=== PATIENT | male | born 1975 | race Caucasian/White ===

== ENCOUNTER 2018-07-31 13:12 | Emergency (ER) | payer OTHER ==
[~2018-07-31] VITALS: Ht 172.7 cm; Wt 85.2 kg
[2018-07-31 13:15] VITALS: RESP 18; Ht 172.7 cm; Wt 85.2 kg
--- NOTE | 2018-07-31 14:49 | ERD ---
ER Documentation Chief Complaint Chief Complaint COCHRAN X 4 DAYS, HTN NOT TAKING MEDS HPI 43-year-old male, previously healthy, presents to the emergency department, complaining of headache for 4 days, associated with elevated blood pressure. The patient was diagnosed with hypertension that has been managed with diet and exercise. However, during the last 2 weeks, the patient has been under a lot of stress and has not been watching his sodium intake, he is concerned about his headache which is described as dull, intermittent, 4/10. No medications taken at this time. He denies chest pain, no shortness of breath, no dizziness, no weakness, no blurred vision. ROS All systems reviewed and are negative except as per history of present illness. Medications Home Meds Active Scripts Hydroxyzine Hcl* (Hydroxyzine Hcl*) 25 Mg Tablet, 25 MG PO Q8H PRN for ANXIETY, #15 TAB Prov:CJ GATES MD 07/31/18 Hydrochlorothiazide* (Hydrochlorothiazide*) 25 Mg Tab, 12.5 MG PO DAILY, #10 TAB Prov:CJ GATES MD 07/31/18 PMhx/Soc Medical and Surgical Hx: pt denies Surgical Hx Hx Cardiac Disorders: Yes (Hypertension) Hx Alcohol Use: No Hx Substance Use: No Hx Tobacco Use: No Smoking Status: Never smoker FmHx Family History: No diabetes, No coronary disease Physical Exam Vitals Vital Signs Date Temp Pulse Resp B/P (MAP) Pulse Ox O2 O2 Flow FiO2 Time Delivery Rate 07/31/18 61 157/97 15:08 (117) 07/31/18 98.1 89 18 173/82 99 13:15 (112) Physical Exam Const: No acute distress Head: Atraumatic Eyes: Normal Conjunctiva ENT: Normal External Ears, Nose and Mouth. Neck: Full range of motion. No meningismus. Resp: Clear to auscultation bilaterally Cardio: Regular rate and rhythm, no murmurs Abd: Soft, non tender, non distended. Normal bowel sounds Skin: No petechiae or rashes Back: No midline or flank tenderness Ext: No cyanosis, or edema Neur: Awake and alert Psych: Normal Mood and Affect Procedures/MDM Vital signs stable. Differential diagnosis considered include uncontrolled hypertension, hypertensive crisis, hypertensive urgency, hypertensive emergency. Low suspicion for acute end organ damage. During the ED course the patient remained stable, no new complaints. Results and clinical impression discussed with the patient who agrees with management. The patient is stable to be treated outpatient and will be discharged home; some side effects of prescribed medications (headache, rash, nausea, vomiting, diarrhea, drowsiness, habituation, bleeding, hypertension, interactions with other medications) were reviewed. Follow up with the primary care provider in the next 48h has been recommended. If symptoms persist, worsen or new symptoms develop, then patient should return to the ED immediately. Instructions explained and given directly by me to the patient with acknowledgment and demonstrated understanding. Disclaimer: Inadvertent spelling and grammatical errors are likely due to EHR/dictation software use and do not reflect on the overall quality of patient care. Also, please note that the electronic time recorded on this note does not necessarily reflect the actual time of the patient encounter. Departure Diagnosis: Primary Impression: Hypertension Additional Impression: Tension headache Condition: Stable Additional Instructions: Thank you very much for allowing us to participate in your care. Your health and safety is our top priority at [facility]. Call your primary care doctor TOMORROW for an appointment during the next 2-4 days and bring all the information and medications prescribed. Have prescriptions filled and follow precisely the directions on the label. If the symptoms get worse and your provider is unavailable, return to the Emergency Department immediately. CJ GATES MD Jul 31, 2018 14:49
[2018-07-31] MEDS ORDERED: HYDR-843 PO (14:52)
[2018-07-31] MEDS ORDERED: HYDR25TA6 PO (14:52)
[2018-07-31 15:08] VITALS: BP 157/97; PULSE 61
== END 2018-07-31 15:08 | disposition home or self-care (01) ==
LOC: FTE 13:12
DX: I10 Essential (primary) hypertension (principal)
CPT/HCPCS: 99283